=== PATIENT | female | born 1980 | race Caucasian/White ===

== ENCOUNTER 2022-10-09 13:20 | Emergency (ER) | payer OTHER, SELFPAY ==
[2022-10-09 13:27] VITALS: BP 172/93; PULSE 86; RESP 16; TEMP 36.8; O2SAT 98; BMI 34.5
--- NOTE | 2022-10-09 13:29 | ED.GENADUL1 ---
HPI - General Adult General Chief complaint: Skin/Abscess/Foreign Body Stated complaint: FORIEGN BODY THROAT Time Seen by Provider: 10/09/22 13:29 History of Present Illness HPI narrative: Patient presents to emergency department complaining of esophageal foreign body. Patient states yesterday night she was takingviatmin capsules of vitamins which she normally takes without any problems however one of them felt like it got stuck and the throat. Patient has been able to eat and drink. She is side red, applesauce, and drinks to bring it down but she still has that sensation that there is something stuck in the throat. She has a history of acid reflux and had a fundoplication several years ago. She has not taken protonix for several years and has not had any issues. She denies any shortness of breath. She denies any fever, THROAT swelling. She has not had a scope done since. The patient called her primary care doctor and was told to come to the emergency department. Related Data Allergies Allergy/AdvReac Type Severity Reaction Status Date / Time No Known Drug Allergies Allergy Verified 10/09/22 13:32 Review of Systems ROS Status of ROS 10 or more systems reviewed and unremarkable except as noted in history and below Exam Narrative Exam Narrative: Nurses notes and vital signs reviewed and patient is not hypoxic. General: Nontoxic, Well-appearing and in no apparent distress. Skin: Warm, dry, no pallor noted. No Rash Head: Normocephalic, atraumatic. Neck: Supple, non-tender. Eye: Pupils are equal, round and EOMI. No scleral icterus. Ears, Nose, Mouth, and Throat: TM clear, no posterior oropharynx erythema or nasal mucosal hypertrophy, uvula is mid-line, No asymmetry, Oral mucosa is moist Cardiovascular: Regular Rate and Rhythm without murmur, gallop or rub. Respiratory: No accessory muscle use or respiratory distress. Lungs are clear to auscultation, no wheezing, rales or rhonchi Chest Wall: no tenderness Back: No midline thoracic or lumbar vertebral tenderness. No CVA tenderness Musculoskeletal: normal ROM, no calf or popliteal tenderness, no lower extremity edema/swelling GI: Abdomen is soft, non-distended. Normal bowel sounds. No masses appreciated. No tenderness to palpation. No rebound, guarding, or rigidity noted. Neurological: A&O x4. No cranial nerve dysfunction observed. No truncal ataxia. Moves all extremities. Sensation intact. Psychiatric: Cooperative and interactive. Normal mood and affect. Constitutional Vital Signs, click to edit/add: Last Vital Signs Temp 98.3 F 10/09/22 13:27 Pulse 83 10/09/22 14:33 Resp 16 10/09/22 14:33 BP 124/76 H 10/09/22 14:33 Pulse Ox 98 10/09/22 14:33 O2 Del Method Room Air 10/09/22 13:27 Course Vital Signs Vital signs: Vital Signs Temperature 98.3 F 10/09/22 13:27 Pulse Rate 86 10/09/22 13:27 Respiratory Rate 16 10/09/22 13:27 Blood Pressure 172/93 H 10/09/22 13:27 Pulse Oximetry 98 10/09/22 13:27 Oxygen Delivery Method Room Air 10/09/22 13:27 Temperature 98.3 F 10/09/22 13:27 Pulse Rate 83 10/09/22 14:33 Respiratory Rate 16 10/09/22 14:33 Blood Pressure 124/76 H 10/09/22 14:33 Pulse Oximetry 98 10/09/22 14:33 Oxygen Delivery Method Room Air 10/09/22 13:27 Medical Decision Making MDM Narrative Medical decision making narrative: Patient will be given a gastrointestinal cocktail. His clinical indication for emergent laboratory or radiologic studies at this time. The patient is tolerating by mouth.The patient was discussed with Dr. Fontenot who advised the patient can be added to his endoscopy scheduled tomorrow. Surgery was contacted and they stated the patient has to be nothing by mouth after midnight and she can come in at 8:30 AM. At this time the patient is without objective evidence of an acute process requiring hospitalization or inpatient management. The patient has remained hemodynamically stable. No additional indication for emergent studies at this time. I answered all questions. Discussed discharge instructions including standard anticipatory guidance and what should prompt a return to the emergency department, including if they get worse are not getting better or develops any new or concerning symptoms. I've given them specific time frame in which to follow-up, and who to follow-up with. The patient demonstrates understanding. Patient is nontoxic and stable for discharge with outpatient follow-up. This note was created with the assistance of a speech recognition program. Although the intention is to generate documents that actually reflects the content of the visit, no guarantees can be provided that every mistake has been identified and corrected by editing. Discharge Plan Discharge Chief Complaint: Skin/Abscess/Foreign Body Clinical Impression: Foreign body in esophagus Patient Disposition: Home, Self-Care Time of Disposition Decision: 14:49 Condition: Good Mode of Transportation: Private Vehicle Instructions: Esophageal Foreign Body (ED) Additional Instructions: Nothing to eat or drink after midnight. Return tomorrow 10/10/22 at 8:30 AM to [facility] to the main entrance to register for an endoscopy by Dr. Fontenot. Stand Alone Forms: Portal Instructions Referrals: Ceasar Fontenot MD [Physician] - 1 week PhysicianNon-MD Salud [Primary Care Provider] - 1 week
--- NOTE | 2022-10-09 13:35 | PC.NURSE ---
PT. STATES THAT SHE TOOK HER VITAMINS LAST NIGHT AND FEELS LIKE ONE OF THE CAPSULES ARE STUCK IN THROAT. PT. STATES DRANK AN BUNCH OF WATER, ATE APPLESAUCE AND YOGURT TRYING TO GET CAPSULE DOWN BUT FEELS IT IS STILL STUCK. STATES MILD NAUSEA WELL BUT NO VOMITING. DENIES ANY DIFFICULTY BREATHING OR SWALLOWING. PT. DOES NOT APPEAR TO BE IN ANY DISTRESS AT THIS TIME.
[2022-10-09] MEDS: lidocaine HCL 15 ML, MAG HYDROX/ALUMINUM HYD/SIMETH 30 ML, HYOSCYAMINE SULFATE 0.25 MG PO (14:01)
[2022-10-09 14:33] VITALS: BP 124/76; PULSE 83; RESP 16; O2SAT 98
== END 2022-10-09 15:29 | disposition home or self-care (01) ==
PROVIDERS: Emergency Provider Emergency Medicine
DX: T18.198A Other foreign object in esophagus causing other injury, initial encounter (principal)
CPT/HCPCS: 99283